=== PATIENT | male | born 1950 | race Caucasian/White ===

== ENCOUNTER 2016-11-13 07:26 | Emergency (ER) | payer OTHER ==
[2016-11-13 07:41] VITALS: TEMP 98.8
[2016-11-13] MEDS ORDERED: ASPIRIN 81 MG CHEWABLE CTB ONE (07:55)
[2016-11-13] MEDS: ASPIRIN 81 MG CHEWABLE CTB PO ONE (07:56)
[2016-11-13 08:32] LABS: BASOPHILS % (AUTO) 1 % (0-3); EOSINOPHILS % (AUTO) 5 % (0-9); HEMATOCRIT 39 % (39-53); MEAN CORPUSCULAR HGB CONC 36.9 gm/dl (32.0-36.0); MEAN CORPUSCULAR VOLUME 85 fL (80-100); MONOCYTES % (AUTO) 9.4 % (0-12); NEUTROPHILS % (AUTO) 59.1 % (37-80)
[2016-11-13 08:41] LABS: CALCIUM 8.8 mg/dl (8.5-10.1); GLOM FILT RATE 77 mL/min (>60); MAGNESIUM 1.5 mg/dl (1.8-2.4); POTASSIUM 4.1 mMol/L (3.5-5.1); SODIUM 139 mMol/L (136-145)
[2016-11-13] MEDS ORDERED: MAGNESIUM OXIDE 400 MG TAB ONE (09:09)
[2016-11-13] MEDS ORDERED: MAGNESIUM OXIDE 400 MG TAB PO SCH (09:15)
[2016-11-13 10:00] VITALS: BP 141/70; PULSE 72; RESP 16; O2SAT 98
== END 2016-11-13 09:44 | disposition home or self-care (01) | DRG 149 ==
LOC: ED 07:26
DX: R42 Dizziness and giddiness (principal); E83.42 Hypomagnesemia; R61 Generalized hyperhidrosis
CPT/HCPCS: 36415; 80048; 83735; 83880; 84484; 85025; 93005; 99284

== ENCOUNTER 2017-07-04 09:29 | Day surgery (SDC) | payer OTHER, MEDICARE ==
[~2017-07-04 09:29] MED LIST: LIDOCAINE HCL 1% MPF SOL ONE; PROPOFOL 500 MG/50 ML EMU IV ONE
[2017-07-04 11:55] VITALS: BP 139/80; PULSE 69; RESP 18; TEMP 97.6; O2SAT 96
== END 2017-07-04 12:30 | disposition home or self-care (01) | DRG 951 ==
LOC: SURG 09:29
PROVIDERS: ATTEND Surgery
DX: Z12.11 Encounter for screening for malignant neoplasm of colon (principal); Z80.0 Family history of malignant neoplasm of digestive organs
CPT/HCPCS: J2001; J2704

== ENCOUNTER 2018-10-08 07:42 | Emergency (ER) | payer BC, MEDICARE ==
[2018-10-08] MEDS ORDERED: NITROGLYCERIN 0.4 MG TAB SL ONE (07:47)
[2018-10-08] MEDS ORDERED: ASPIRIN 81 MG CHEWABLE CTB ONE (07:47)
[2018-10-08] MEDS ORDERED: ASPIRIN 81 MG CHEWABLE CTB PO ONE (07:55)
[2018-10-08 07:58] VITALS: TEMP 97.8
[2018-10-08 07:59] LABS: BASOPHILS % (AUTO) 1 % (0-3); EOSINOPHILS % (AUTO) 6 % (0-9); HEMATOCRIT 45 % (39-53); LYMPHOCYTES % (AUTO) 25.9 % (10-50); MEAN CORPUSCULAR HEMOGLOBIN 30.4 pg (27.0-32.0); MEAN CORPUSCULAR HGB CONC 33.8 gm/dl (32.0-36.0); MEAN CORPUSCULAR VOLUME 90 fL (80-100); MONOCYTES % (AUTO) 10.8 % (0-12); NEUTROPHILS % (AUTO) 56.2 % (37-80)
[2018-10-08] MEDS ORDERED: SODIUM CHLORIDE 0.9% FLUSH 10 ML SOL IV PRN (08:01)
[2018-10-08 08:13] LABS: ALBUMIN 3.6 gm/dl (3.4-5.0); ALKALINE PHOSPHATASE 92 IU/L (46-116); ALT 52 IU/L (14-63); AST 25 IU/L (15-37); BILIRUBIN,TOTAL 0.4 mg/dl (0.2-1.0); BLOOD UREA NITROGEN 21 mg/dl (7-18); CALCIUM 8.8 mg/dl (8.5-10.1); CARBON DIOXIDE 27.9 mEq/L (21-32); CHLORIDE 103 mMol/L (98-107); CREATININE 0.99 mg/dl (0.80-1.30); GLUCOSE 123 mg/dl (74-106); POTASSIUM 3.8 mMol/L (3.5-5.1); SODIUM 139 mMol/L (136-145); TOTAL PROTEIN 6.9 gm/dl (6.4-8.2); TROP I < 0.017 ng/ml (0.000-0.056)
[2018-10-08 10:37] VITALS: BP 123/68; PULSE 58; RESP 15; O2SAT 97
== END 2018-10-08 10:29 | disposition home or self-care (01) ==
LOC: ED 07:42
DX: E83.42 Hypomagnesemia (principal); R07.9 Chest pain, unspecified; I45.10 Unspecified right bundle-branch block
CPT/HCPCS: 36415; 71045; 80053; 83880; 84484; 85025; 85610; 85730; 93005; 99284; 99285; A9270-GY